=== PATIENT | male | born 1945 | race Asian ===

== ENCOUNTER 2017-04-22 02:21 | Inpatient (IN) | payer OTHER ==
[~2017-04-22] VITALS: Ht 177.8 cm; Wt 80.8 kg
[2017-04-22 03:32] LABS: BASOPHIL % 0.2 % (0-2); PLATELET COUNT 206 x10^3mcL (130-400); RED CELL DISTRIBUTION WIDTH 13.4 % (11.5-14.5)
[2017-04-22 03:43] LABS: CALCIUM 8.4 mg/dL (8.5-10.1); CARBON DIOXIDE 24.8 mmol/L (21-32); CHLORIDE SERUM 105 mmol/L (98-107); GLUCOSE SERUM 126 mg/dL (74-106); SODIUM SERUM 139 mmol/L (136-145)
[2017-04-22 03:46] LABS: ALBUMIN 3.4 g/dL (3.4-5.0); ALKALINE PHOSPHATASE 59 U/L (46-116); ALT/SGPT 33 U/L (16-63); AST/SGOT 31 U/L (15-37); BILIRUBIN TOTAL 0.6 mg/dL (0.20-1.00); TOTAL PROTEIN, SERUM 6.7 g/dL (6.4-8.2)
[2017-04-22] MEDS ORDERED: ATENOLOL25 MG PO (05:12)
[2017-04-22] MEDS ORDERED: ASPIRIN81 MG PO (05:13)
[2017-04-22] MEDS ORDERED: PAIN RELIEVER650 MG PO (05:14)
[2017-04-22] MEDS ORDERED: MOM PO (05:15)
[2017-04-22] MEDS ORDERED: MP PO (05:16)
[2017-04-22] MEDS ORDERED: AMBIEN5 MG PO (05:17)
[2017-04-22] MEDS ORDERED: ATIVAN1 MG PO (05:17)
[2017-04-22 06:34] LABS: T3 TOTAL 1.33 ng/mL
[2017-04-22 07:02] LABS: PHOSPHOROUS 2.8 mg/dL (2.5-4.9)
[2017-04-22 07:09] LABS: CHOLESTEROL/HDL RATIO 2.6
[2017-04-22 07:12] LABS: FREE T4 1.06 ng/dL (0.76-1.46); T4(THYROXINE) 5.8 ug/dL (4.7-13.3)
[2017-04-22 07:40] LABS: AMPHETAMINE QUAL UR NONE DETECTED (NEG <=1000)
[2017-04-22 07:51] VITALS: BP 144/84
[2017-04-22 08:51] VITALS: BP 144/84
[2017-04-22 09:06] VITALS: BP 144/84
[2017-04-22 17:00] VITALS: BP 140/84
[2017-04-22 22:03] VITALS: BP 129/77
[2017-04-23 05:53] VITALS: BP 118/73
[2017-04-23 06:19] LABS: BASOPHIL % 0.2 % (0-2); PLATELET COUNT 199 x10^3mcL (130-400); RED CELL DISTRIBUTION WIDTH 13.4 % (11.5-14.5)
[2017-04-23 07:03] LABS: CALCIUM 8.9 mg/dL (8.5-10.1); CARBON DIOXIDE 23.7 mmol/L (21-32); CHLORIDE SERUM 99 mmol/L (98-107); GLUCOSE SERUM 119 mg/dL (74-106); MAGNESIUM 1.9 mg/dL (1.8-2.4); PHOSPHOROUS 2.6 mg/dL (2.5-4.9); SODIUM SERUM 134 mmol/L (136-145)
[2017-04-23 13:35] VITALS: BP 116/69
[2017-04-23 17:40] VITALS: BP 100/54
[2017-04-23 19:21] VITALS: BP 102/62
[2017-04-24 05:32] VITALS: BP 132/79
[2017-04-24 06:46] LABS: CALCIUM 8.8 mg/dL (8.5-10.1); CARBON DIOXIDE 28.7 mmol/L (21-32); CHLORIDE SERUM 102 mmol/L (98-107); CREATININE SERUM 1.4 mg/dL (0.7-1.3); GLUCOSE SERUM 87 mg/dL (74-106); POTASSIUM SERUM 4.7 mmol/L (3.5-5.1); SODIUM SERUM 139 mmol/L (136-145)
[2017-04-24 07:05] LABS: BASOPHIL % 0.2 % (0-2); PLATELET COUNT 174 x10^3mcL (130-400); RED CELL DISTRIBUTION WIDTH 13.6 % (11.5-14.5)
[2017-04-24 21:21] VITALS: BP 120/63
[2017-04-24 21:31] VITALS: BP 120/80
[2017-04-25 05:16] VITALS: BP 115/75
[2017-04-25 06:44] LABS: BASOPHIL % 0.3 % (0-2); PLATELET COUNT 170 x10^3mcL (130-400); RED CELL DISTRIBUTION WIDTH 13.6 % (11.5-14.5)
[2017-04-25 07:04] LABS: CALCIUM 9.1 mg/dL (8.5-10.1); CARBON DIOXIDE 26.5 mmol/L (21-32); CHLORIDE SERUM 100 mmol/L (98-107); CREATININE SERUM 1.1 mg/dL (0.7-1.3); GLUCOSE SERUM 124 mg/dL (74-106); MAGNESIUM 1.9 mg/dL (1.8-2.4); PHOSPHOROUS 3.1 mg/dL (2.5-4.9); POTASSIUM SERUM 4.5 mmol/L (3.5-5.1); SODIUM SERUM 136 mmol/L (136-145)
[2017-04-25 07:39] VITALS: BP 120/79
[2017-04-25 12:44] VITALS: Ht 177.8 cm; Wt 80.8 kg
[2017-04-25 17:47] VITALS: BP 139/81
[2017-04-25 21:36] VITALS: BP 117/74
[2017-04-26 05:10] VITALS: BP 136/86
[2017-04-26 17:13] VITALS: BP 97/66
[2017-04-27 04:08] VITALS: BP 116/70
[2017-04-27 07:12] LABS: BASOPHIL % 0.3 % (0-2); PLATELET COUNT 217 x10^3mcL (130-400); RED CELL DISTRIBUTION WIDTH 13.2 % (11.5-14.5)
[2017-04-27 07:24] LABS: CALCIUM 8.6 mg/dL (8.5-10.1); CARBON DIOXIDE 26.3 mmol/L (21-32); CHLORIDE SERUM 100 mmol/L (98-107); CREATININE SERUM 1.1 mg/dL (0.7-1.3); GLUCOSE SERUM 112 mg/dL (74-106); POTASSIUM SERUM 4.2 mmol/L (3.5-5.1); SODIUM SERUM 134 mmol/L (136-145)
[2017-04-27 10:00] VITALS: BP 116/72
[2017-04-27 13:00] VITALS: BP 105/66
[2017-04-27 17:30] VITALS: BP 138/75
[2017-04-27 17:49] VITALS: BP 138/75
[2017-04-27] MEDS ORDERED: OXCARBAZEPINE300 M1 PO (17:58)
[2017-04-27] MEDS ORDERED: ATA25 PO (17:58)
[2017-04-27] MEDS ORDERED: LIPI10 PO (17:59)
[2017-04-27] MEDS ORDERED: TYL325 PO (17:59)
[2017-04-27] MEDS ORDERED: LEXAPRO10 MG PO (17:59)
[2017-04-27] MEDS ORDERED: PRI20 PO (17:59)
[2017-04-27] MEDS ORDERED: SERO100 PO (18:03)
== END 2017-04-27 20:15 | DRG 177 ==
LOC: ED 02:21 → DU 05:38 → MU 05:38 → DU 07:40 → MU 04-24 10:32
PROVIDERS: Emergency Medicine; Family Medicine; Family Medicine Sports Medicine
DX: J69.0 Pneumonitis due to inhalation of food and vomit (principal); G93.41 Metabolic encephalopathy; L03.114 Cellulitis of left upper limb; F31.64 Bipolar disorder, current episode mixed, severe, with psychotic features; E87.1 Hypo-osmolality and hyponatremia; M94.0 Chondrocostal junction syndrome [Tietze]; E86.0 Dehydration; F60.3 Borderline personality disorder; I10 Essential (primary) hypertension; I48.91 Unspecified atrial fibrillation; I34.0 Nonrheumatic mitral (valve) insufficiency; E03.9 Hypothyroidism, unspecified; F17.210 Nicotine dependence, cigarettes, uncomplicated; F10.10 Alcohol abuse, uncomplicated; Z95.0 Presence of cardiac pacemaker; Z79.82 Long term (current) use of aspirin; Z88.2 Allergy status to sulfonamides; Z68.27 Body mass index [BMI] 27.0-27.9, adult
CPT/HCPCS: 83880; 84439; 85378; 90732; 97116-GP; 97530-GP; G0480; J1630; J1956; J2060; J2270; J2550; J3490; J7030; J7050; J8597; Q0092; Q9967

== ENCOUNTER 2017-04-30 10:01 | Emergency (ER) | payer OTHER ==
[~2017-04-30] VITALS: Ht 175.3 cm; Wt 82.0 kg
[~2017-04-30 10:01] MED LIST: AMBIEN5 MG PO; ASPIRIN81 MG PO; ATA25 PO; ATENOLOL25 MG PO; ATIVAN1 MG PO; LEXAPRO10 MG PO; LIPI10 PO; MOM PO; MP PO; OXCARBAZEPINE300 M1 PO; PAIN RELIEVER650 MG PO; PRI20 PO; SERO100 PO; TYL325 PO
[2017-04-30 10:10] VITALS: Ht 175.3 cm; Wt 82.0 kg
[2017-04-30 10:55] LABS: BASOPHIL % 0.4 % (0-2); PLATELET COUNT 262 x10^3mcL (130-400)
[2017-04-30 11:08] LABS: CALCIUM 9.1 mg/dL (8.5-10.1); CARBON DIOXIDE 27.5 mmol/L (21-32); CHLORIDE SERUM 98 mmol/L (98-107); GLUCOSE SERUM 116 mg/dL (74-106); POTASSIUM SERUM 4.4 mmol/L (3.5-5.1); SODIUM SERUM 134 mmol/L (136-145)
[2017-04-30 11:14] LABS: ALBUMIN 3.4 g/dL (3.4-5.0); ALKALINE PHOSPHATASE 61 U/L (46-116); ALT/SGPT 36 U/L (16-63); AST/SGOT 32 U/L (15-37); BILIRUBIN TOTAL 0.3 mg/dL (0.20-1.00); TOTAL PROTEIN, SERUM 7.4 g/dL (6.4-8.2)
[2017-04-30 12:24] VITALS: BP 152/90
== END 2017-04-30 12:24 ==
LOC: ED 10:01
PROVIDERS: Emergency Medicine
DX: S22.32XA Fracture of one rib, left side, initial encounter for closed fracture (principal); F31.9 Bipolar disorder, unspecified; I10 Essential (primary) hypertension; I48.91 Unspecified atrial fibrillation; Z88.2 Allergy status to sulfonamides; X58.XXXA Exposure to other specified factors, initial encounter; Y93.89 Activity, other specified; Y92.89 Other specified places as the place of occurrence of the external cause; Y99.8 Other external cause status
CPT/HCPCS: 83880; J1885; Q0092